=== PATIENT | female | born 1980 | race African-American/Black ===

== ENCOUNTER 2020-02-08 06:20 | Emergency (ER) | payer OTHER ==
[~2020-02-08] VITALS: Ht 162.6 cm; Wt 79.4 kg
[2020-02-08 06:25] VITALS: BP 115/75
[2020-02-08] MEDS ORDERED: NACL 0.9% 1,000 ML IV SCH (06:41)
[2020-02-08] MEDS ORDERED: ONDANSETRON 4 MG/2 ML VIAL IVP ONE (06:45)
--- NOTE | 2020-02-08 06:46 | NUR ---
PT TAKEN TO BED 6
--- NOTE | 2020-02-08 06:50 | NUR ---
39 Y/O MALE PRESENTS TO ED, C/O LLQ ABDOMINAL/GROIN PAIN THAT RADIATES TO HER LEFT LEG. PT STATES LMP WAS ON OCTOBER, TESTED SELF SEVERAL TIMES THAT CAME BACK POSITIVE. PT WENT TO OB FOR FOLLOW UP, ULTRASOUND CAME BACK NEGATIVE. URINE HCG AT ED IS POSITIVE, ERMD AWARE. PT C/O DOUBLE VISION ALONG WITH METALLIC TASTE. PT STATES HAVING NAUSEA BUT DENIES VOMITING. PT C/O CONSTIPATION, LAST BM WAS YESTERDAY. PT STABLE ERMD MADE AWARE. WILL CONTINUE TO MONITOR.
--- NOTE | 2020-02-08 06:53 | NUR ---
LAB AT BEDSIDE AT THIS TIME
--- NOTE | 2020-02-08 07:12 | NUR ---
Dr. Escobar examining patient.
[2020-02-08 07:13] LABS: BASOPHILS % (AUTO) 1.5 % (0.0-2.0); EOSINOPHILS # (AUTO) 0.2 K/uL (0-0.4); EOSINOPHILS % (AUTO) 6.1 % (0.0-4.0); HEMATOCRIT 39.9 % (36-48); HEMOGLOBIN 13.5 g/dL (12.0-16.0); LYMPHOCYTES # (AUTO) 1.3 K/uL (2.5-16.5); LYMPHOCYTES % (AUTO) 41.3 % (20.5-51.1); MEAN CORPUSCULAR HEMOGLOBIN 29 pg (27-31); MEAN CORPUSCULAR HGB CONC 34 g/dL (33-37); MEAN CORPUSCULAR VOLUME 84.7 fL (80-94); MONOCYTES # (AUTO) 0.2 K/uL (0.8-1.0); MONOCYTES % (AUTO) 7.6 % (1.7-9.3); NEUTROPHILS # (AUTO) 1.3 K/uL (1.8-7.7); NEUTROPHILS % (AUTO) 43.5 % (42.2-75.2); PLATELET COUNT (AUTO) 225 K/uL (140-450); RED BLOOD CELL COUNT(AUTO) 4.71 MIL/uL (4.20-5.40); RED CELL DISTRIBUTION WIDTH 13.9 % (11.6-13.7)
[2020-02-08 07:27] LABS: ALBUMIN 3.5 g/dL (3.4-5.0); CARBON DIOXIDE 26.6 mmol/L (21-32); CREATININE 0.6 mg/dL (0.6-1.3); POTASSIUM 3.6 mmol/L (3.5-5.1); TOTAL BILIRUBIN 0.6 mg/dL (0.0-1.0)
--- NOTE | 2020-02-08 07:52 | NUR ---
ULTRASOUND AT BEDSIDE
[2020-02-08 08:00] LABS: APPEARANCE,URINE SL CLOUDY (CLEAR); BILIRUBIN,URINE NEGATIVE (NEGATIVE); BLOOD, URINE NEGATIVE (NEGATIVE); COLOR,URINE YELLOW (YELLOW); LEUKOCYTE ESTERASE ,URINE NEGATIVE (NEGATIVE); NITRITE, URINE POSITIVE (NEGATIVE); UGLUCOSE NEGATIVE (NEGATIVE)
--- NOTE | 2020-02-08 08:36 | NUR ---
PT RESTING IN BED ON CELL PHONE. HOB ELEVATED, RR EVEN AND UNLABORED. DENIES NAUSEA/PAIN AT THIS TIME. WILL CONTINUE TO MONITOR
--- NOTE | 2020-02-08 09:18 | NUR ---
PT AMBULATED TO RESTROOM WITH STEADY GAIT
--- NOTE | 2020-02-08 10:02 | NUR ---
PT RESTING IN BED AWAKE AND ALERT, RR EVEN AND UNLABORED. WILL CONTINUE TO MONITOR
--- NOTE | 2020-02-08 10:06 | NUR ---
DR WORLEY AT BEDSIDE RE-EVALUATING PT
--- NOTE | 2020-02-08 10:09 | NUR ---
IV DISCONTINUED, 2X2 GAUZE PLACED TO SITE. BLEEDING CONTROLLED AT THIS TIME
[2020-02-08 10:16] VITALS: BP 112/72
--- NOTE | 2020-02-08 10:17 | NUR ---
Patient discharged with v/s stable. Written and verbal after care instructions given and explained. Patient alert, oriented and verbalized understanding of instructions. Ambulatory with steady gait. All questions addressed prior to discharge. ID band removed. Patient advised to follow up with PMD. Rx of KEFLEX 500MG given. Patient educated on indication of medication including possible reaction and side effects. Opportunity to ask questions provided and answered.
== END 2020-02-08 10:17 | disposition home or self-care (01) ==
LOC: MED 06:20
DX: O23.41 Unspecified infection of urinary tract in pregnancy, first trimester (principal); Z3A.01 Less than 8 weeks gestation of pregnancy
CPT/HCPCS: 36415; 76817; 80053; 81003; 81025; 82150; 83690; 84702; 85025; 99284; J7030; Q0092; 96374; J2405

== ENCOUNTER 2020-02-10 11:29 | Emergency (ER) | payer OTHER ==
[~2020-02-10] VITALS: Ht 162.6 cm; Wt 77.6 kg
[2020-02-10 11:33] VITALS: BP 106/65
[2020-02-10] MEDS ORDERED: CEPH250C16 PO (11:35)
--- NOTE | 2020-02-10 11:38 | NUR ---
Patient ambulated to bed 11. RN evaluating patient at bedside.
--- NOTE | 2020-02-10 11:40 | NUR ---
A0 APPROX 10 WKS PREG. LMP 11/22/2019 C/O PAINLESS/CONTROLLED VAGINAL BLEEDING X1 DAY. PT WAS SEEN AT [facility] 02/08/2020 AND HAD FULL OB WORK UP DONE INCLUDING U/S. PT STATES SHE BEGAN TAKING KEFLEX PRESCRIBED AND BEGAN TO HAVE MILD VAGINAL BLEEDING YESTERDAY AND WAS TOLD TO COME TO THE ER FOR F/U BY HER OBGYN. BED IN LOW POSITION, SIDE RAIL UP X1. PER DR SIDDIQUI, NO URINE COLLECTION NEEDED AT THIS TIME.
--- NOTE | 2020-02-10 11:54 | NUR ---
DR. SIDDIQUI AT BEDSIDE
[2020-02-10 13:03] LABS: BASOPHILS % (AUTO) 0.6 % (0.0-2.0); EOSINOPHILS # (AUTO) 0.2 K/uL (0-0.4); EOSINOPHILS % (AUTO) 4.6 % (0.0-4.0); HEMATOCRIT 37.9 % (36-48); HEMOGLOBIN 12.5 g/dL (12.0-16.0); LYMPHOCYTES # (AUTO) 1.2 K/uL (2.5-16.5); LYMPHOCYTES % (AUTO) 29.5 % (20.5-51.1); MEAN CORPUSCULAR HEMOGLOBIN 28 pg (27-31); MEAN CORPUSCULAR HGB CONC 33 g/dL (33-37); MEAN CORPUSCULAR VOLUME 85.1 fL (80-94); MONOCYTES # (AUTO) 0.3 K/uL (0.8-1.0); MONOCYTES % (AUTO) 6.9 % (1.7-9.3); NEUTROPHILS # (AUTO) 2.4 K/uL (1.8-7.7); NEUTROPHILS % (AUTO) 58.4 % (42.2-75.2); PLATELET COUNT (AUTO) 226 K/uL (140-450); RED BLOOD CELL COUNT(AUTO) 4.46 MIL/uL (4.20-5.40); RED CELL DISTRIBUTION WIDTH 13.9 % (11.6-13.7); WHITE BLOOD COUNT (AUTO) 4.1 K/uL (4.8-10.8)
--- NOTE | 2020-02-10 14:21 | NUR ---
PT RESTING IN BED, NO NEW NEEDS AT THIS TIME.
[2020-02-10 14:54] VITALS: BP 103/60
--- NOTE | 2020-02-10 14:54 | NUR ---
Patient discharged with v/s stable. Written and verbal after care instructions given and explained. Patient verbalized understanding. Ambulatory with steady gait. All questions addressed prior to discharge. Advised to follow up with PMD.
== END 2020-02-10 14:54 | disposition home or self-care (01) ==
LOC: MED 11:29
DX: O20.0 Threatened abortion (principal); Z79.899 Other long term (current) drug therapy
CPT/HCPCS: 36415; 84702; 85025; 99283

== ENCOUNTER 2020-02-10 20:44 | Emergency (ER) | payer OTHER ==
[~2020-02-10] VITALS: Ht 162.6 cm; Wt 79.8 kg
[~2020-02-10 20:44] MED LIST: CEPH250C16 PO
[2020-02-10 20:49] VITALS: BP 135/72
--- NOTE | 2020-02-10 20:54 | NUR ---
PT AMBULATED TO BED 10 WITH STEADY GAIT
--- NOTE | 2020-02-10 21:15 | NUR ---
DR. DENTON AT BEDSIDE FOR MSE. NO NURSING ASSESSMENT OR INTERVENTIONS NEEDED AT THIS TIME.
--- NOTE | 2020-02-10 21:16 | NUR ---
RUSTY DENTON AT BEDSIDE EVALUATING PT.
[2020-02-10 21:43] VITALS: BP 135/72
== END 2020-02-10 21:43 | disposition home or self-care (01) ==
LOC: MED 20:44
DX: O03.9 Complete or unspecified spontaneous abortion without complication (principal); Z3A.10 10 weeks gestation of pregnancy; Z79.899 Other long term (current) drug therapy
CPT/HCPCS: 81025; 99282; 99283